=== PATIENT | female | born 1985 | race Caucasian/White ===

== ENCOUNTER 2023-03-30 23:06 | Emergency (ER) | payer MEDICAID ==
[~2023-03-30] VITALS: Ht 165.1 cm; Wt 66.7 kg
[2023-03-30 23:17] VITALS: BP 143/86
--- NOTE | 2023-03-30 23:29 | ED Integumentary General ---
"General Chief Complaint: Bite-Animal/Human/Insect Stated Complaint: ANIMAL BITE| HAND NUMB Source: patient Exam Limitations: no limitations History of Present Illness Date Seen by Provider: March 30, 2023 Time Seen by Provider: 23:20 Initial Comments 37-year-old female presents for cat bite to her left arm. She states 3 days ago she was seen for cat bite on her left arm, had a tetanus updated since taking Augmentin. Today she was bitten by a cat once again in the same spot. She did not really worry about it because she was already on antibiotics and that she started to have a little numbness in her thumb and index finger and it hurts to move her left thumb. The bite was in the mid forearm on the radial surface. No fevers or chills. No drainage. All other systems reviewed and negative except documented per HPI. Voice recognition software was used to help create this chart Allergies and Home Medications Patient Home Medication List Home Medication List Reviewed: Yes Review of Systems Review of Systems Constitutional: see HPI Past Dzqsqyw-Mgwlco-Rtjvjk Hx Patient Social History Tobacco Use?: No Use of E-Cig and/or Vaping dev: No Substance use?: No Alcohol Use?: No Physical Exam Vital Signs Capillary Refill : General Appearance: WD/WN, no apparent distress Cardiovascular: regular rate, rhythm, no murmur Respiratory: chest non-tender, lungs clear, normal breath sounds, no respiratory distress, no accessory muscle use Gastrointestinal: non tender, soft Extremities: non-tender, normal inspection, other (Several abrasions and puncture type frost to the flexor and lateral radial surface of the forearm. Neurovascular motor and sensory intact. No induration, drainage.) Skin: normal color, warm/dry, other (Abrasions, punctures as described above) Departure Communication (Admissions) Patient is hemodynamically stable, nontoxic. She is here for second cat bite. She is already on Augmentin. No indication for new antibiotics. There is no evidence for infection. She likely had a bite directly over near the tendon and the radial nerve causing inflammation in the area or small damage to the area. Overall there is no weakness to to the affected area. She does have mild sensory deficits thumb and index finger on the left side motor is intact. She has full range of motion with minimal pain. She is discharged in stable condition with supportive care and recommended to continue her antibiotics. Impression Primary Impression: Cat bite Qualified Codes: W55.01XA - Bitten by cat, initial encounter Disposition: HOME, SELF-CARE Condition: Stable Departure-Patient Inst. Add. Discharge Instructions: Continue your antibiotics as previously prescribed. Use ibuprofen alternated with Tylenol as needed for pain, inflammation. Return to the emergency department immediately if you have any streaking up your arm or redness, drainage looks like pus or if your symptoms change in any way concerning to you. I believe the numbness in your fingers will get somewhat better but it is hard to tell if it all completely resolved. The pain with movement in your thumb should get better over time. Follow-up with your primary doctor for any nonemergent needs. All discharge instructions reviewed with patient and/or family. Voiced understanding. WARD HERRERA DO March 30, 2023 23:29"
== END 2023-03-30 23:33 | disposition home or self-care (01) ==
LOC: ER FS 23:10
DX: S51.852A Open bite of left forearm, initial encounter (principal); W55.01XA Bitten by cat, initial encounter
CPT/HCPCS: 99283

== ENCOUNTER 2023-04-27 00:52 | Emergency (ER) | payer MEDICAID ==
[~2023-04-27] VITALS: Ht 165.1 cm; Wt 67.4 kg
--- NOTE | 2023-04-27 01:19 | ED Headache ---
General Chief Complaint: Head/Cervical Problems Stated Complaint: NECK PAIN - BILAT HAND NUMBNESS Source: patient Exam Limitations: no limitations History of Present Illness Date Seen by Provider: Apr 27, 2023 Time Seen by Provider: 00:56 Initial Comments 37-year-old female with past medical history of depression, chronic neck and beth k pain, headaches coming in due to headache and neck pain. Started about a week and a half ago, went to [facility] emergency department was diagnosed with a pinched nerve in her neck. She also had a headache and was given a migraine cocktail which improved her symptoms. Symptoms started back up tonight with the tightness in her neck with tension going across the back of her head to the front. The pain is moderate, constant, pressure-like. With the pinched nerve, she sometimes gets numbness to her left arm past the elbow which she was experiencing a little bit earlier tonight. Denies any weakness, falls, does not take any blood thinners, no vision changes, chest pain, or any other concerns. Allergies and Home Medications Allergies Coded Allergies: No Known Drug Allergies (Unverified , 04/27/23) Patient Home Medication List Home Medication List Reviewed: Yes Review of Systems Review of Systems Constitutional: No fever Eyes: No Symptoms Reported Ears, Nose, Mouth, Throat: no symptoms reported Respiratory: no symptoms reported Cardiovascular: no symptoms reported Gastrointestinal: no symptoms reported Genitourinary: no symptoms reported Musculoskeletal: see HPI Psychiatric/Neurological: See HPI Past Kascsff-Exfriu-Owtawb Hx Patient Social History Substance use?: Yes Substance type: Marijuana Immunizations Up To Date First/Initial COVID19 Vaccinat: 2020 Second COVID19 Vaccination Sumeet: 2020 Third COVID19 Vaccination Date: 2021 Physical Exam Vital Signs Capillary Refill : Height, Weight, BMI Height: '" Weight: lbs. oz. kg; 24.00 BMI Method: General Appearance: WD/WN, no apparent distress HEENT: PERRL/EOMI, normal ENT inspection, pharynx normal Neck: non-tender, full range of motion, supple, normal inspection, other (Positive Spurling on the left with recreation of her symptoms, tingling in the distribution of C6 and C7) Cardiovascular: regular rate, rhythm Respiratory: chest non-tender, lungs clear, normal breath sounds, no respiratory distress, no accessory muscle use Gastrointestinal: normal bowel sounds, non tender, soft Back: normal inspection, no CVA tenderness, no vertebral tenderness Extremities: normal range of motion, non-tender, normal inspection, no pedal edema, no calf tenderness, normal capillary refill Psychiatric: alert Crainal Nerves: normal hearing, normal speech, PERRL Coordination/Gait: normal finger to nose, normal gait Motor/Sensory: no motor deficit, no sensory deficit Skin: normal color, warm/dry Progress/Results/Core Measures Results/Orders My Orders Orders - JESUS MARQUEZ MD Ketorolac Injection (Toradol Injection) (04/27/23 01:30) Prochlorperazine Injection (Compazine In (04/27/23 01:30) Diphenhydramine Injection (Benadryl Inje (04/27/23 01:30) Dexamethasone Oral Soln (Ed) (Decadron I (04/27/23 01:19) Progress Progress Note : Progress Note 37-year-old female with above history coming in due to headache and cervical radiculopathy. ABCs were intact and vitals were stable on presentation. Physical exam with a positive Spurling and tingling in the C6 and C7 distribution of her neck. I suspect a tension type headache as well as cervical radiculopathy clinically. She has no red flags on exam. She will be given IM medications for her headache as well as Decadron for the headache and cervical radiculopathy. In the absence of trauma and the fact that this is going on a chronic issue,, I think it is appropriate for her to have outpatient imaging with a spine surgeon as a multi site leasing consultant, especially given she has no true numbness or weakness on exam objectively. Overall well-appearing and I believe stable for discharge with outpatient follow-up. She was sent home with strict return precautions. Departure Impression Primary Impression: Cervical radiculopathy Additional Impression: Tension headache Disposition: HOME, SELF-CARE Condition: Stable Departure-Patient Inst. Decision time for Depature: 01:35 Referrals: NO,LOCAL PHYSICIAN (PCP/Family) Primary Care Physician Patient Instructions: Headache, Adult ED, Radiculopathy (DC) Add. Discharge Instructions: The numbness in your arm could be from 2 different things. We sometimes see this with migraines, and it typically gets better when the headache gets better. I think what is more likely is a pinched nerve in your cervical spine causing numbness down your arm. This is typically more common when the numbness goes past the elbow. The medications we gave you today would help with inflammation and could potentially help with this. We do recommend if this persists to follow-up with your regular doctor and likely get a referral to a spine physician for an evaluation. If having pain tomorrow, we recommend 600 mg of ibuprofen every 6 hours as well as 1000 mg of Tylenol every 6 hours for the pain. Work/School Note: Work Release Form Date Seen in the Emergency Department: Apr 27, 2023 Return to Work: Apr 28, 2023 Restrictions: No Restrictions JESUS MARQUEZ MD Apr 27, 2023 01:19
[2023-04-27] MEDS ORDERED: diphenhydrAMINE 50 MG/ML INJ (BENADRYL) IM ONE (01:30)
[2023-04-27] MEDS ORDERED: PROCHLORPERAZINE 10 MG/2ML INJ (COMPAZINE) IM ONE (01:30)
[2023-04-27] MEDS ORDERED: KETOROLAC 15 MG/ML VIAL IM ONE (01:30)
[2023-04-27 01:45] VITALS: BP 139/88
[2023-04-27] MEDS ORDERED: BUPR1FIL3 SL (02:13)
== END 2023-04-27 01:45 | disposition home or self-care (01) ==
LOC: EDUNIT# 00:52 → ER FS 00:54
DX: M54.12 Radiculopathy, cervical region (principal); G44.209 Tension-type headache, unspecified, not intractable
CPT/HCPCS: 99284

== ENCOUNTER 2023-05-15 23:52 | Emergency (ER) | payer MEDICAID ==
[~2023-05-15 23:52] MED LIST: BUPR1FIL3 SL
--- NOTE | 2023-05-15 23:55 | ED Integumentary General ---
General Stated Complaint: FACIAL/CHEST RASH History of Present Illness Date Seen by Provider: May 15, 2023 Time Seen by Provider: 23:55 Initial Comments 37 yr F with PMH of Depression, is here with c/o flushing and redness to her face and chest, and also to her hands which has been worsening over the past couple of days, with restlessness, anxiety, night sweats, hot flashes. Patient started on Viibryd one moth ago. Pt is also on Subaxone, and was recently started on Flexeril 3 days ago, and that is when the pt's symptoms began. Denies seizures, muscular rigidity or stiffness, confusion, fever and chills, diarrhea, vomiting. Allergies and Home Medications Allergies Coded Allergies: No Known Drug Allergies (Unverified , 04/27/23) Patient Home Medication List Home Medication List Reviewed: Yes Buprenorphine HCl/Naloxone HCl (Suboxone 8 mg-2 mg Sl Film) 8 Mg-2 Mg Film, 0.5 FILM SL DAILY, (Reported) Entered as Reported by: LAURYN SINHA on 04/27/23212 Diphenhydramine HCl (Benadryl) 25 Mg Capsule, 25 MG PO BID Prescribed by: SANDY BUCHANAN MD on 05/16/2345 Epinephrine (Epinephrine) 0.3 Mg/0.3 Ml Auto.injct, 0.3 MG IJ ONCE Prescribed by: SANDY BUCHANAN MD on 05/16/2345 Prednisone (Prednisone) 50 Mg Tab, 50 MG PO DAILY Prescribed by: SANDY BUCHANAN MD on 05/16/2345 Review of Systems Review of Systems Constitutional: no symptoms reported, see HPI EENTM: no symptoms reported Respiratory: no symptoms reported Cardiovascular: see HPI Gastrointestinal: no symptoms reported Genitourinary: no symptoms reported Musculoskeletal: no symptoms reported Skin: see HPI, change in color Psychiatric/Neurological: Anxiety Endocrine: No Symptoms Reported Past Gswvvmq-Zdovwc-Mbopik Hx Immunizations Up To Date First/Initial COVID19 Vaccinat: 2020 Second COVID19 Vaccination Sumeet: 2020 Third COVID19 Vaccination Date: 2021 Past Medical History Surgery/Hospitalization HX: GERD, Depression Physical Exam Vital Signs Vital Signs - First Documented 05/15/23 23:57 Temp 36.9 Pulse 114 Resp 18 B/P (MAP) 180/110 (133) Pulse Ox 100 O2 Delivery Room Air Capillary Refill : General Appearance: WD/WN, mild distress HEENT: PERRL/EOMI, normal ENT inspection, pharynx normal Neck: non-tender, full range of motion, supple, normal inspection Cardiovascular: no edema, tachycardia Respiratory: chest non-tender, lungs clear, normal breath sounds, no respiratory distress, no accessory muscle use Gastrointestinal: non tender, soft Extremities: normal range of motion Neurologic/Psychiatric: no motor/sensory deficits, alert, normal mood/affect, oriented x 3 Skin: other (Flushing in the face and upper chest and upper extremities) Skin Problem Location: face, neck, upper extremities Skin Problem Character: other (Flushing) Progress/Results/Core Measures Results/Orders My Orders Orders - SANDY BUCHANAN MD Prednisone Tablet (Deltasone Tablet) (05/16/23 00:15) Diphenhydramine Tablet (Benadryl Tablet) (05/16/23 00:15) Famotidine Tablet (Pepcid Tablet) (05/16/23 00:15) Lorazepam Tablet (Ativan Tablet) (05/16/23 00:14) Lorazepam Tablet (Ativan Tablet) (05/16/23 00:28) Lorazepam Tablet (Ativan Tablet) (05/16/23 00:32) Medications Given in ED Current Medications Medications Dose Ordered Sig/Nathaniel Route Start Time Stop Time Status Last Admin Dose Admin Diphenhydramine HCl 50 mg ONCE ONCE PO 05/16/23 00:15 05/16/23 00:16 DC 05/16/23 00:17 50 MG Famotidine 20 mg ONCE ONCE PO 05/16/23 00:15 05/16/23 00:16 DC 05/16/23 00:17 20 MG Prednisone 50 mg ONCE ONCE PO 05/16/23 00:15 05/16/23 00:16 DC 05/16/23 00:17 50 MG Vital Signs/I&O 05/15/23 05/16/23 23:57 00:43 Temp 36.9 36.9 Pulse 114 114 Resp 18 18 B/P (MAP) 180/110 (133) 180/110 Pulse Ox 100 100 O2 Delivery Room Air Room Air Progress Progress Note : Progress Note 1. ADVERSE REACTION WITH INTERACTION OF VIIBRYD AND FLEXERIL AND SUBOXONE: MILD SEROTONIN SYNDROME -There is a possibility that patient may be developing mild serotonin syndrome caused by the Viibryd along with Flexeril. Symptoms include flushing, anxiety, restlessness, tachycardia and elevated blood pressure. Pt was given Prednisone 50mg, Benadryl 50mg, and Pepcid 20mg, and Ativan 0.5mg in the ER. Advised to stop viibryd and suboxone and Flexeril - Prescriptions for prednisone for 3 days 50mg daily, Benadryl 25mg twice a day for 3 days, Epi pen dual pack prescription to be taken only if SOB and wheezing develop - Follow up with Psychiatry [facility]. Call Psych office tomorrow to report interaction of Viibryd and Flexril and adverse reaction. - Follow up with PCP within the next 3 days - Return to ER if symptoms worsen - Will take approximately 48 to 72 hours to resolve. - Hydration with 8 to 10 glasses of water a day recommended -The patient was seen in the ED, and treated appropriately to presentation at a specific point in time. Patient is informed that there is a possibility that disease and illness can evolve and change in acuity rapidly or slowly after patient is discharged from the ER. Precautionary advice given to the patient for immediate return to ER if symptoms worsen or do not resolve, and to seek emergency care sooner rather than later. Pt also advised on the importance of PCP follow up and compliance with management and follow up plan with PCP and/or specialist, as this is part of the management plan. Pt verbally expressed understanding. Departure Impression Primary Impression: Side effect of drug Additional Impression: Serotonin syndrome Disposition: 01 HOME, SELF-CARE Condition: Stable Departure-Patient Inst. Referrals: NO,LOCAL PHYSICIAN (PCP/Family) Primary Care Physician Patient Instructions: Adverse Drug Reactions, Adult (DC), Adverse Drug Reactions, Adult ED, Serotonin syndrome Add. Discharge Instructions: - Prescriptions for prednisone for 3 days 50mg daily, Benadryl 25mg twice a day for 3 days, Epi pen dual pack prescription to be taken only if SOB and wheezing develop - Follow up with Psychiatry [facility]. Call Psych office tomorrow to report interaction of Viibryd and Flexril and Suboxone adverse reaction. Stop taking these medications. Will take approximately 48 to 72 hours to resolve. - Follow up with PCP within the next 3 days - Return to ER if symptoms worsen - Hydration with 8 to 10 glasses of water a day recommended Scripts Diphenhydramine HCl (Benadryl) 25 Mg Capsule 25 MG PO BID for 3 Days, #6 CAP Prov: SANDY BUCHANAN MD 05/16/23 Prednisone (Prednisone) 50 Mg Tab 50 MG PO DAILY for 3 Days, #3 TAB Prov: SANDY BUCHANAN MD 05/16/23 Epinephrine (Epinephrine) 0.3 Mg/0.3 Ml Auto.injct 0.3 MG IJ ONCE for Shortness of Breath for 1 Day, #2 ML Prov: SANDY BUCHANAN MD 05/16/23 SANDY BUCHANAN MD May 15, 2023 23:55
[2023-05-16] MEDS ORDERED: LORazepam 0.5 MG (ATIVAN) TABLET PO STA (00:14)
[2023-05-16] MEDS ORDERED: FAMOTIDINE 20 MG (PEPCID) TABLET PO ONE (00:15)
[2023-05-16] MEDS ORDERED: diphenhydrAMINE 25 MG TAB (BENADRYL) PO ONE (00:15)
[2023-05-16] MEDS ORDERED: predniSONE 20 MG TAB PO ONE (00:15)
[2023-05-16] MEDS ORDERED: LORazepam 1 MG (ATIVAN) TAB ONE (00:28)
[2023-05-16] MEDS ORDERED: LORazepam 0.5 MG (ATIVAN) TABLET ONE (00:32)
[2023-05-16 00:43] VITALS: BP 180/110
[2023-05-16] MEDS ORDERED: DIPH25CA79 PO (00:46)
[2023-05-16] MEDS ORDERED: EPIN0.3P18 IJ (00:46)
[2023-05-16] MEDS ORDERED: PRD50T PO (00:46)
== END 2023-05-16 00:48 | disposition home or self-care (01) ==
LOC: EDUNIT# 23:52 → ER FS 23:53
DX: R23.2 Flushing (principal); L53.9 Erythematous condition, unspecified; T48.1X5A Adverse effect of skeletal muscle relaxants [neuromuscular blocking agents], initial encounter; T43.225A Adverse effect of selective serotonin reuptake inhibitors, initial encounter; T50.7X5A Adverse effect of analeptics and opioid receptor antagonists, initial encounter; T40.495A Adverse effect of other synthetic narcotics, initial encounter; T50.995A Adverse effect of other drugs, medicaments and biological substances, initial encounter
CPT/HCPCS: 99283

== ENCOUNTER 2023-05-20 16:05 | Emergency (ER) | payer MEDICAID ==
[~2023-05-20] VITALS: Ht 165.1 cm; Wt 67.1 kg
[~2023-05-20 16:05] MED LIST changes: +DIPH25CA79 PO; +EPIN0.3P18 IJ; +PRD50T PO
--- NOTE | 2023-05-20 16:26 | ED General ---
General Stated Complaint: ABD PAIN,HEART RACING,NAUSEA Source of Information: Patient Exam Limitations: No Limitations History of Present Illness Date Seen by Provider: May 20, 2023 Time Seen by Provider: 16:14 Initial Comments 37-year-old female presents to the emergency department today for palpitations nausea and an overall feeling of "burning from the inside." She states symptoms started on 05/12. She was seen here on 05/15. At that time it was thought she may have a mild serotonin syndrome according to record review if she was taking Viibryd Flexeril and Suboxone. She was advised to stop taking Viibryd and Flexeril and continue Suboxone. Her symptoms have persisted. She states she has had intermittent episodes of heart racing that lasts a few minutes to up to 30 minutes at a time. These are associated with some lightheadedness. She states she checked her pulse and it would go as high as 158. She has had some intermittent chest tightness during these episodes but has none outside of that. Her symptoms do not seem to be specifically associated with exertion. She has had some nausea but has not vomited. She has had diffuse abdominal cramping during these episodes as well. She also states she has had some facial flushing intermittently. She was seen by her psychiatrist and giving something that was "like Benadryl." She states sometimes she will take this and can get her heart rate down but sometimes it does not work. All other systems reviewed and negative except documented per HPI. Voice recognition software was used to help create this chart Allergies and Home Medications Allergies Coded Allergies: No Known Drug Allergies (Unverified , 04/27/23) Patient Home Medication List Home Medication List Reviewed: Yes Buprenorphine HCl/Naloxone HCl (Suboxone 8 mg-2 mg Sl Film) 8 Mg-2 Mg Film, 0.5 FILM SL DAILY, (Reported) Entered as Reported by: LAURYN SINHA on 04/27/23 0213 Diphenhydramine HCl (Benadryl) 25 Mg Capsule, 25 MG PO BID Prescribed by: SANDY BUCHANAN MD on 05/16/23 0046 Epinephrine (Epinephrine) 0.3 Mg/0.3 Ml Auto.injct, 0.3 MG IJ ONCE Prescribed by: SANDY BUCHANAN MD on 05/16/23 0046 Prednisone (Prednisone) 50 Mg Tab, 50 MG PO DAILY Prescribed by: SANDY BUCHANAN MD on 05/16/23 0046 Review of Systems Review of Systems Constitutional: see HPI Past Pxnrekl-Wzudti-Itvbxo Hx Patient Social History Tobacco Use?: No Use of E-Cig and/or Vaping dev: No Substance use?: No Alcohol Use?: No Immunizations Up To Date First/Initial COVID19 Vaccinat: 2020 Second COVID19 Vaccination Sumeet: 2020 Third COVID19 Vaccination Date: 2021 Past Medical History Surgery/Hospitalization HX: GERD, Depression Physical Exam Vital Signs Vital Signs - First Documented 05/20/23 16:08 Temp 36.7 Pulse 102 Resp 18 B/P (MAP) 150/94 (112) O2 Delivery Room Air Capillary Refill : Height, Weight, BMI Height: '" Weight: lbs. oz. kg; 24.00 BMI Method: General Appearance: No Apparent Distress, WD/WN Eyes: Bilateral Eye Normal Inspection, Bilateral Eye PERRL, Bilateral Eye EOMI HEENT: PERRL/EOMI, Normal ENT Inspection, Pharynx Normal Neck: Full Range of Motion, Non Tender, Supple Respiratory: Chest Non Tender, Lungs Clear, Normal Breath Sounds, No Accessory Muscle Use, No Respiratory Distress Cardiovascular: No Murmur, Tachycardia Gastrointestinal: Normal Bowel Sounds, No Organomegaly, Non Tender, Soft Extremity: Normal Capillary Refill, Normal Inspection, Normal Range of Motion, Non Tender, No Calf Tenderness, No Pedal Edema Neurologic/Psychiatric: Alert, Oriented x3, No Motor/Sensory Deficits Skin: Other (mild facial flushing) Progress/Results/Core Measures Suspected Sepsis SIRS Temperature: Pulse: Respiratory Rate: Laboratory Tests 05/20/23 16:23: White Blood Count 8.8 Blood Pressure / Mean: Laboratory Tests 05/20/23 16:23: Creatinine 0.63, Platelet Count 282 Results/Orders Lab Results Laboratory Tests Test 05/20/23 16:23 Range/Units White Blood Count 8.8 4.3-11.0 10^3/uL Red Blood Count 4.50 3.80-5.11 10^6/uL Hemoglobin 13.9 11.5-16.0 g/dL Hematocrit 41 35-52 % Mean Corpuscular Volume 91 80-99 fL Mean Corpuscular Hemoglobin 31 25-34 pg Mean Corpuscular Hemoglobin Concent 34 32-36 g/dL Red Cell Distribution Width 12.4 10.0-14.5 % Platelet Count 282 130-400 10^3/uL Mean Platelet Volume 9.6 9.0-12.2 fL Immature Granulocyte % (Auto) 1 % Neutrophils (%) (Auto) 48 42-75 % Lymphocytes (%) (Auto) 44 12-44 % Monocytes (%) (Auto) 5 0-12 % Eosinophils (%) (Auto) 1 0-10 % Basophils (%) (Auto) 1 0-10 % Neutrophils # (Auto) 4.2 1.8-7.8 10^3/uL Lymphocytes # (Auto) 3.9 1.0-4.0 10^3/uL Monocytes # (Auto) 0.4 0.0-1.0 10^3/uL Eosinophils # (Auto) 0.1 0.0-0.3 10^3/uL Basophils # (Auto) 0.1 0.0-0.1 10^3/uL Immature Granulocyte # (Auto) 0.1 0.0-0.1 10^3/uL Sodium Level 143 135-145 MMOL/L Potassium Level 3.4 L 3.6-5.0 MMOL/L Chloride Level 103 98-107 MMOL/L Carbon Dioxide Level 29 21-32 MMOL/L Anion Gap 11 5-14 MMOL/L Blood Urea Nitrogen 9 7-18 MG/DL Creatinine 0.63 0.60-1.30 MG/DL Estimat Glomerular Filtration Rate 117 BUN/Creatinine Ratio 14 Glucose Level 117 H 70-105 MG/DL Calcium Level 9.4 8.5-10.1 MG/DL Serum Test, Qualitative NEGATIVE NEGATIVE My Orders Orders - SHARONWARD Smith DO Cbc With Automated Diff (05/20/23 16:19) Basic Metabolic Panel (05/20/23 16:19) Hcg,Qualitative Serum (05/20/23 16:19) Chest 1 View Ap/Pa Only (05/20/23 16:19) Ekg Tracing (05/20/23 16:19) Vital Signs/I&O 05/20/23 16:08 Temp 36.7 Pulse 102 Resp 18 B/P (MAP) 150/94 (112) O2 Delivery Room Air Capillary Refill : ECG Comment Sinus rhythm at 97 bpm. Normal intervals. Normal axis. No ST or T wave abnormalities. No ectopy. No STEMI. Departure Communication (Admissions) Independently reviewed EKG which is nonischemic, sinus tachycardia. When about the room her heart rate is in the 70s to 80s. When I entered the room it enters into the 90s to low 100s. Blood pressures have been stable. I reviewed her chest x-ray which was negative for any acute cardiopulmonary abnormalities. Chemistry obtained to check for electrolyte abnormality, this is normal. CBC is obtained to check for anemia, this is normal as well. There is no evidence for any emergency medical condition at this time. Her troponin is negative. She be discharged home with supportive care. It sounds as though her symptoms may be related to anxiety. She states she will call her psychiatrist tomorrow for further treatment recommendations. She is discharged home in stable condition. Impression Primary Impression: Palpitations Disposition: 01 HOME, SELF-CARE Condition: Stable Departure-Patient Inst. Referrals: NO,LOCAL PHYSICIAN (PCP/Family) Primary Care Physician Patient Instructions: Palpitations (DC) Add. Discharge Instructions: No emergent medical conditions are identified for your symptoms today. Your heart rate is slightly elevated on arrival but is a sinus rhythm meaning that the pictures that the electricity is coming from the right place. I recommend you follow-up by getting a Holter monitor. Unfortunately this is not something we can arrange from the emergency department but you can call your primary care doctor's office tomorrow to help with arrangements. Drink plenty of fluids and get rest as needed. Return to the emergency department for any severe concerns. WARD HERRERA DO May 20, 2023 16:26
[2023-05-20 16:29] LABS: BASOPHILS # (AUTO) 0.1 10^3/uL (0.0-0.1); BASOPHILS % (AUTO) 1 % (0-10); EOSINOPHILS # (AUTO) 0.1 10^3/uL (0.0-0.3); EOSINOPHILS % (AUTO) 1 % (0-10); HEMATOCRIT 41 % (35-52); HEMOGLOBIN 13.9 g/dL (11.5-16.0); LYMPHOCYTES # (AUTO) 3.9 10^3/uL (1.0-4.0); LYMPHOCYTES % (AUTO) 44 % (12-44); MEAN CORPUSCULAR HEMOGLOBIN 31 pg (25-34); MEAN CORPUSCULAR HGB CONC 34 g/dL (32-36); MEAN CORPUSCULAR VOLUME 91 fL (80-99); MEAN PLATELET VOLUME 9.6 fL (9.0-12.2); MONOCYTES # (AUTO) 0.4 10^3/uL (0.0-1.0); MONOCYTES % (AUTO) 5 % (0-12); NEUTROPHILS # (AUTO) 4.2 10^3/uL (1.8-7.8); NEUTROPHILS % (AUTO) 48 % (42-75); PLATELET COUNT 282 10^3/uL (130-400); WHITE BLOOD COUNT 8.8 10^3/uL (4.3-11.0)
--- NOTE | 2023-05-20 16:32 | Diagnostic Imaging Report ---
Indication: Chest pain and palpitations. No priors. Findings: Heart and lungs appear normal. No pleural pathology. Impression: Negative Dictated by: Dictated on workstation # [id number]
[2023-05-20 16:49] LABS: CALCIUM 9.4 MG/DL (8.5-10.1); CREATININE SERUM 0.63 MG/DL (0.60-1.30); POTASSIUM 3.4 MMOL/L (3.6-5.0)
[2023-05-20 17:45] VITALS: BP 131/76
== END 2023-05-20 17:45 | disposition home or self-care (01) ==
LOC: EDUNIT# 16:05 → ER FS 16:07
DX: R00.2 Palpitations (principal); R00.0 Tachycardia, unspecified; R23.2 Flushing
CPT/HCPCS: 36415; 71045; 80048; 84703; 85025; 93005

== ENCOUNTER 2023-07-01 13:26 | Emergency (ER) | payer MEDICAID ==
[~2023-07-01] VITALS: Ht 165.1 cm; Wt 67.1 kg
--- NOTE | 2023-07-01 13:43 | ED Cardiac General ---
History of Present Illness General Chief Complaint: Cardiac/General Problems Stated Complaint: LETHARGY; ELEV HR; HEART PALPITATIONS Source: patient Exam Limitations: no limitations History of Present Illness Date Seen by Provider: Jul 01, 2023 Time Seen by Provider: 13:33 Initial Comments 37-year-old female presents emergency department today for elevated heart rate and fatigue. Symptoms present over the last couple of days. No fevers chills cough abdominal pain, change in bowel or bladder habits. Normal menstrual cycle a few weeks. No sick contacts. She did take some hydroxyzine which she takes as needed for anxiety prior to arrival. She also takes Suboxone daily and has done so for several years. All other systems reviewed and negative except documented per HPI. Voice recognition software was used to help create this chart Allergies and Home Medications Allergies Coded Allergies: No Known Drug Allergies (Unverified , 04/27/23) Patient Home Medication List Home Medication List Reviewed: Yes Buprenorphine HCl/Naloxone HCl (Suboxone 8 mg-2 mg Sl Film) 8 Mg-2 Mg Film, 0.5 FILM SL DAILY, (Reported) Entered as Reported by: LAURYN SINHA on 04/27/23 021 Diphenhydramine HCl (Benadryl) 25 Mg Capsule, 25 MG PO BID Prescribed by: SANDY BUCHANAN MD on 05/16/2345 Epinephrine (Epinephrine) 0.3 Mg/0.3 Ml Auto.injct, 0.3 MG IJ ONCE Prescribed by: SANDY BUCHANAN MD on 05/16/2345 Prednisone (Prednisone) 50 Mg Tab, 50 MG PO DAILY Prescribed by: SANDY BUCHANAN MD on 05/16/2345 Review of Systems Review of Systems Constitutional: see HPI Past Zmyxgqe-Kwwiqo-Csohry Hx Patient Social History Tobacco Use?: No Use of E-Cig and/or Vaping dev: No Substance use?: No Alcohol Use?: No Immunizations Up To Date First/Initial COVID19 Vaccinat: 2020 Second COVID19 Vaccination Sumeet: 2020 Third COVID19 Vaccination Date: 2021 Past Medical History Surgery/Hospitalization HX: GERD, Depression Physical Exam Vital Signs Vital Signs - First Documented 07/01/23 13:32 Temp 37.0 Pulse 109 Resp 17 B/P (MAP) 153/99 (117) Pulse Ox 99 O2 Delivery Room Air Capillary Refill : Height, Weight, BMI Height: '" Weight: lbs. oz. kg; 24.00 BMI Method: General Appearance: No Apparent Distress, WD/WN HEENT: Normal ENT Inspection, Pharynx Normal Neck: Full Range of Motion, Supple Respiratory: Chest Non Tender, Lungs Clear, Normal Breath Sounds, No Accessory Muscle Use, No Respiratory Distress Cardiovascular: No Murmur, Tachycardia (The patient has tachycardia between [id number]. Notably when evaluating on the bedside monitor this is mostly when someone is in the room. Upon leaving the room her heart rate drops into the 90s.) Gastrointestinal: Normal Bowel Sounds, No Organomegaly, Non Tender, Soft Extremity: Normal Capillary Refill, Normal Inspection, Non Tender, No Calf Tenderness Neurologic/Psychiatric: Alert, Oriented x3, Normal Mood/Affect Skin: Normal Color, Warm/Dry Progress/Results/Core Measures Results/Orders Lab Results Laboratory Tests Test 07/01/23 13:53 Range/Units White Blood Count 6.6 4.3-11.0 10^3/uL Red Blood Count 4.59 3.80-5.11 10^6/uL Hemoglobin 14.4 11.5-16.0 g/dL Hematocrit 42 35-52 % Mean Corpuscular Volume 92 80-99 fL Mean Corpuscular Hemoglobin 31 25-34 pg Mean Corpuscular Hemoglobin Concent 34 32-36 g/dL Red Cell Distribution Width 12.3 10.0-14.5 % Platelet Count 291 130-400 10^3/uL Mean Platelet Volume 9.8 9.0-12.2 fL Immature Granulocyte % (Auto) 1 % Neutrophils (%) (Auto) 65 42-75 % Lymphocytes (%) (Auto) 29 12-44 % Monocytes (%) (Auto) 4 0-12 % Eosinophils (%) (Auto) 1 0-10 % Basophils (%) (Auto) 1 0-10 % Neutrophils # (Auto) 4.3 1.8-7.8 10^3/uL Lymphocytes # (Auto) 1.9 1.0-4.0 10^3/uL Monocytes # (Auto) 0.2 0.0-1.0 10^3/uL Eosinophils # (Auto) 0.0 0.0-0.3 10^3/uL Basophils # (Auto) 0.0 0.0-0.1 10^3/uL Immature Granulocyte # (Auto) 0.0 0.0-0.1 10^3/uL Percent Immature Platelet Fraction 2.8 0.0-7.6 % Sodium Level 138 135-145 MMOL/L Potassium Level 3.5 L 3.6-5.0 MMOL/L Chloride Level 104 98-107 MMOL/L Carbon Dioxide Level 25 21-32 MMOL/L Anion Gap 9 5-14 MMOL/L Blood Urea Nitrogen 9 7-18 MG/DL Creatinine 0.67 0.60-1.30 MG/DL Estimat Glomerular Filtration Rate 115 BUN/Creatinine Ratio 13 Glucose Level 107 H 70-105 MG/DL Calcium Level 10.3 H 8.5-10.1 MG/DL My Orders Orders - WARD HERRERA DO Cbc With Automated Diff (07/01/23 13:38) Basic Metabolic Panel (07/01/23 13:38) Ekg Tracing (07/01/23 13:39) Vital Signs/I&O 07/01/23 13:32 Temp 37.0 Pulse 109 Resp 17 B/P (MAP) 153/99 (117) Pulse Ox 99 O2 Delivery Room Air Comment Sinus rhythm with a rate of 73 bpm. Normal intervals. Normal axis. No ST or T wave abnormalities. No ectopy. No STEMI. Departure Communication (Admissions) Her blood pressurePatient is hemodynamically stable. She is tachycardic and we are in the room however the minute caregivers leave the room her heart rate gr adually settles down into the 70s80s. T her blood pressures are stable. She has no chest pain. No dizziness, lightheadedness. Lab work-up is remarkable only for very mild hypokalemia, 3.5.. No evidence for anemia. She be discharged in stable condition with supportive care. Impression Primary Impression: Palpitations Disposition: HOME, SELF-CARE Condition: Stable Departure-Patient Inst. Referrals: NO,LOCAL PHYSICIAN (PCP/Family) Primary Care Physician Patient Instructions: Palpitations Add. Discharge Instructions: Allergic medical conditions are identified for your symptoms today. Your vital signs exam and lab work-up are reassuring. Increase your fluids at home, rest. Follow-up with your primary doctor should your symptoms persist. Return to the emergency department if your symptoms change in any way emergently concerning to you. All discharge instructions reviewed with patient and/or family. Voiced understanding. WARD HERRERA DO Jul 01, 2023 13:43
[2023-07-01 14:08] LABS: BASOPHILS % (AUTO) 1 % (0-10); EOSINOPHILS % (AUTO) 1 % (0-10); HEMATOCRIT 42 % (35-52); HEMOGLOBIN 14.4 g/dL (11.5-16.0); LYMPHOCYTES # (AUTO) 1.9 10^3/uL (1.0-4.0); LYMPHOCYTES % (AUTO) 29 % (12-44); MEAN CORPUSCULAR HEMOGLOBIN 31 pg (25-34); MEAN CORPUSCULAR HGB CONC 34 g/dL (32-36); MEAN CORPUSCULAR VOLUME 92 fL (80-99); MEAN PLATELET VOLUME 9.8 fL (9.0-12.2); MONOCYTES # (AUTO) 0.2 10^3/uL (0.0-1.0); MONOCYTES % (AUTO) 4 % (0-12); NEUTROPHILS # (AUTO) 4.3 10^3/uL (1.8-7.8); NEUTROPHILS % (AUTO) 65 % (42-75); PLATELET COUNT 291 10^3/uL (130-400); WHITE BLOOD COUNT 6.6 10^3/uL (4.3-11.0)
[2023-07-01 14:24] LABS: POTASSIUM 3.5 MMOL/L (3.6-5.0)
[2023-07-01 14:25] LABS: CALCIUM 10.3 MG/DL (8.5-10.1); CREATININE SERUM 0.67 MG/DL (0.60-1.30)
[2023-07-01 14:34] VITALS: BP 124/72
== END 2023-07-01 14:35 | disposition home or self-care (01) ==
LOC: EDUNIT# 13:26 → ER FS 13:28
DX: R00.2 Palpitations (principal); R00.0 Tachycardia, unspecified; E87.6 Hypokalemia; Z79.891 Long term (current) use of opiate analgesic
CPT/HCPCS: 36415; 80048; 85025; 93005